=== PATIENT | male | born 1935 | race Caucasian/White ===

== ENCOUNTER 2017-09-14 20:26 | Emergency (ER) | payer OTHER ==
[~2017-09-14] VITALS: Ht 172.7 cm; Wt 77.1 kg
[2017-09-14 21:00] VITALS: Ht 172.7 cm; Wt 77.1 kg
[2017-09-14 22:49] VITALS: BP 102/58
== END 2017-09-14 22:49 | disposition home or self-care (01) ==
LOC: ED 20:26
DX: S80.01XA Contusion of right knee, initial encounter (principal); W18.39XA Other fall on same level, initial encounter; Y93.89 Activity, other specified; Y92.89 Other specified places as the place of occurrence of the external cause; Y99.8 Other external cause status

== ENCOUNTER 2020-02-15 17:01 | Emergency (ER) | payer OTHER ==
[~2020-02-15] VITALS: Ht 177.8 cm; Wt 81.6 kg
[2020-02-15 17:07] VITALS: Ht 177.8 cm; Wt 81.6 kg
[2020-02-15 22:10] VITALS: BP 116/56
== END 2020-02-15 22:10 | disposition home or self-care (01) ==
LOC: ED 17:01
DX: S92.901A Unspecified fracture of right foot, initial encounter for closed fracture (principal); S93.401A Sprain of unspecified ligament of right ankle, initial encounter; W18.30XA Fall on same level, unspecified, initial encounter; Y93.89 Activity, other specified; Y92.89 Other specified places as the place of occurrence of the external cause; Y99.8 Other external cause status

== ENCOUNTER 2020-05-21 12:11 | Emergency (ER) | payer OTHER, MEDICAID ==
[~2020-05-21] VITALS: Ht 165.1 cm; Wt 81.6 kg
[2020-05-21 14:58] LABS: PLATELET COUNT 202 x10^3mcL (152-348)
[2020-05-21 16:36] LABS: CALCIUM 8.9 mg/dL (8.5-10.1); CARBON DIOXIDE 26.8 mmol/L (21-32); CHLORIDE SERUM 102 mmol/L (98-107); GLUCOSE SERUM 106 mg/dL (74-106); POTASSIUM SERUM 4.1 mmol/L (3.5-5.1); SODIUM SERUM 138 mmol/L (136-145)
[2020-05-21 16:50] LABS: ALBUMIN 3.4 g/dL (3.4-5.0); ALKALINE PHOSPHATASE 95 U/L (46-116); ALT/SGPT 37 U/L (16-63); AST/SGOT 33 U/L (15-37); BILIRUBIN TOTAL 1.77 mg/dL (0.20-1.00); TOTAL PROTEIN, SERUM 7.6 g/dL (6.4-8.2)
[2020-05-21] MEDS ORDERED: LASIX20 MG PO (17:41)
[2020-05-21] MEDS ORDERED: VITAMIN D3250 MCG PO (17:42)
[2020-05-21] MEDS ORDERED: ALD25 PO (17:43)
[2020-05-21] MEDS ORDERED: COREG12.5 MG PO (17:43)
[2020-05-21] MEDS ORDERED: ALLOPURINOL100 MG PO (17:43)
[2020-05-21] MEDS ORDERED: LIPI20 PO (17:44)
[2020-05-21] MEDS ORDERED: HYDRALAZINE HCL25 MG PO (17:45)
[2020-05-21] MEDS ORDERED: ISOSORBIDE DINI10 MG PO (17:45)
[2020-05-21] MEDS ORDERED: SPIRIVA RE2.5 MCG/Ac INH (17:46)
[2020-05-21] MEDS ORDERED: ELIQUIS5 MG PO (17:46)
[2020-05-21 18:18] LABS: BASOPHIL % 1.3 % (0.2-1.5); PLATELET COUNT 202 x10^3mcL (152-348)
[2020-05-21 18:19] LABS: RED CELL DISTRIBUTION WIDTH 15.4 % (12.1-16.2)
[2020-05-21 18:51] VITALS: BP 122/49
== END 2020-05-21 20:53 | disposition admitted as inpatient to this hospital (09) ==
LOC: ED 12:11 → CANBEDREQ 18:00 → ED 20:53
PROVIDERS: Emergency Medicine
DX: K06.8 Other specified disorders of gingiva and edentulous alveolar ridge (principal); I11.0 Hypertensive heart disease with heart failure; I50.9 Heart failure, unspecified; Z20.828 Contact with and (suspected) exposure to other viral communicable diseases